=== PATIENT | female | born 1960 | race Caucasian/White ===

== ENCOUNTER 2024-11-02 10:45 | Emergency (ER) | payer MEDICARE, OTHER ==
[~2024-11-02] VITALS: Ht 157.5 cm; Wt 92.7 kg
[2024-11-02] MEDS ORDERED: 0.9% SODIUM CHLORIDE 10 ML SYRINGE IVP PRN (11:00)
[2024-11-02 11:04] VITALS: TEMP 98.4
[2024-11-02] MEDS: OxyCODONE HCL/ACETAMINOPHEN 5-325 MG TABLET PO ONE ×2 (11:38→16:38)
[2024-11-02 11:43] LABS: PLATELET COUNT (AUTO) 369 K/uL (150-450); RED BLOOD CELL COUNT(AUTO) 3.85 MIL/uL (4.00-5.20); RED CELL DISTRIBUTION WIDTH 15.8 % (11.5-14.5); WHITE BLOOD COUNT (AUTO) 5.2 K/uL (4.5-11.0)
[2024-11-02 11:56] LABS: CALCIUM, TOTAL 9.4 mg/dL (8.8-10.5); CREATININE 0.81 mg/dL (0.60-1.30); GLOMERULAR FILTR. RATE CALC > 60 mL/min (>60); GLUCOSE,RANDOM 134 mg/dL (70-110); SODIUM SERUM 141 mmol/L (136-145); UREA NITROGEN, BLOOD 11 mg/dL (7-18)
[2024-11-02 12:02] LABS: ASPARTATE AMINOTRANSFERASE 14 U/L (15-37); TOTAL PROTEIN, SERUM 6.7 g/dL (6.4-8.2)
[2024-11-02 12:06] LABS: LACTIC ACID 0.8 mmol/L (0.4-2.0)
[2024-11-02] MEDS: PIPERACILLIN/TAZO 3.375 GM/D5W 50 ML IV ONE (13:18)
[2024-11-02] MEDS: ONDANSETRON HCL 4 MG/2 ML VIAL IVP ONE (13:20)
[2024-11-02] MEDS: VANCOMYCIN 1GM/WATER(PEG/NADA) 200 ML IV ONE (13:29)
[2024-11-02 14:40] LABS: APPEARANCE,URINE CLEAR (CLEAR); GLUCOSE, URINE (UA) NEGATIVE (NEGATIVE); LEUKOCYTE ESTERASE ,URINE MODERATE (NEGATIVE); NITRATE,URINE NEGATIVE (NEGATIVE); OCCULT BLOOD,URINE NEGATIVE (NEGATIVE); SPECIFIC GRAVITIY, URINE 1.025 (1.003-1.030)
[2024-11-02 14:55] LABS: SQUAMOUS EPITHELIAL CELL,UR Few /LPF (None Seen)
[2024-11-02 17:53] VITALS: BP 107/63; PULSE 68; RESP 16; O2SAT 97
== END 2024-11-02 18:51 | disposition short-term general hospital (02) ==
LOC: EMS 10:45 → CANBEDREQ 16:21 → EMS 18:51
DX: T81.41XA Infection following a procedure, superficial incisional surgical site, initial encounter (principal); G89.29 Other chronic pain; Y92.89 Other specified places as the place of occurrence of the external cause
CPT/HCPCS: 99285; 96365; 96366; 96375; 80048; 80076; 87205; 81001; 83605; 85025; 85610; 87040; 36415; 93005; 96368; 87070; 84145; J2405; J2543; J3490; 87186